=== PATIENT | female | born 1955 | race African-American/Black ===

== ENCOUNTER 2023-06-12 17:00 | Outpatient (CLI) | payer MEDICARE | END 2023-06-12 17:01 | disposition home or self-care (01) | LOC: SLEEPLAB 17:00 | PROVIDERS: ATTEND Student in an Organized Health Care Education/Training Program | DX: G47.33 Obstructive sleep apnea (adult) (pediatric) (principal); E11.9 Type 2 diabetes mellitus without complications; E66.9 Obesity, unspecified; I10 Essential (primary) hypertension | CPT/HCPCS: 95800 ==